=== PATIENT | female | born 1985 | race African-American/Black ===

== ENCOUNTER 2018-04-28 05:50 | Observation (INO) | payer MEDICAID ==
[2018-04-28] MEDS ORDERED: PREN-96 PO (07:54)
== END 2018-04-28 08:00 | disposition home or self-care (01) | DRG 566 ==
LOC: LDRP 05:50
PROVIDERS: ADMIT Obstetrics & Gynecology; ATTEND Obstetrics & Gynecology
DX: O26.853 Spotting complicating pregnancy, third trimester (principal); O26.893 Other specified pregnancy related conditions, third trimester; R51 Headache; R10.30 Lower abdominal pain, unspecified; Z3A.33 33 weeks gestation of pregnancy
CPT/HCPCS: 59025; 76805; 81002; G0378

== ENCOUNTER 2018-06-06 16:20 | Observation (INO) | payer MEDICAID ==
[~2018-06-06 16:20] MED LIST: PREN-96 PO
== END 2018-06-06 17:30 | disposition home or self-care (01) | DRG 566 ==
LOC: LDRP 16:20
PROVIDERS: ADMIT Specialist; ATTEND Specialist
DX: O62.9 Abnormality of forces of labor, unspecified (principal); Z3A.38 38 weeks gestation of pregnancy
CPT/HCPCS: 59025; 81002; G0378

== ENCOUNTER 2018-06-12 07:35 | Observation (INO) | payer MEDICAID | END 2018-06-12 10:10 | disposition home or self-care (01) | DRG 566 | LOC: LDRP 07:35 | PROVIDERS: ADMIT Specialist; ATTEND Specialist | DX: O26.853 Spotting complicating pregnancy, third trimester (principal); O62.9 Abnormality of forces of labor, unspecified; Z3A.39 39 weeks gestation of pregnancy | CPT/HCPCS: 59025; 81002; G0378 ==

== ENCOUNTER 2018-06-12 21:05 | Inpatient (IN) | payer MEDICAID ==
[~2018-06-12] VITALS: Ht 172.7 cm; Wt 88.9 kg
[2018-06-12] MEDS ORDERED: LACT. RINGERS/OXYTOCIN 20UNITS 1,000 ML IV SCH (21:28)
[2018-06-12] MEDS: LACTATED RINGER'S 1,000 ML IV SCH (21:28)
[2018-06-12] MEDS ORDERED: LIDOCAINE 2%HCL (LOCAL ANESTH.) INJ 20ML MDV ID PRN (21:30)
[2018-06-12] MEDS ORDERED: DERMOPLAST 60ML BOTTLE TOP PRN (21:30)
[2018-06-12] MEDS ORDERED: PHISODERM TOP SOLN 240ML BTL TOP PRN (21:30)
[2018-06-12] MEDS ORDERED: METHYLERGONOVINE MALEATE 0.2 MG/ML AMP IM PRN (21:30)
[2018-06-12] MEDS ORDERED: WITCH HAZEL-GLYCERIN PAD TOP PRN (21:30)
[2018-06-12 22:00] LABS: Basophils # (auto) 0 uL; Eosinophils # (auto) 0.1 uL; Neutrophils % (auto) 77.7 % (37.0-80.0)
[2018-06-12 22:01] LABS: Basophils % (auto) 0.4 % (0.0-2.0); Eosinophils % (auto) 0.6 % (0.0-7.0); Hematocrit 29.2 % (36.0-46.0); Hemoglobin 9.4 g/dL (12.2-16.2); Lymphocytes # (auto) 1.3 uL; Lymphocytes % (auto) 12.6 % (10.0-50.0); Mean Corpuscular Hemoglobin 26.3 pg (28.0-32.0); Mean Corpuscular Hgb Conc. 32.3 g/dL (32.0-36.0); Mean Corpuscular Volume 81.4 fL (80.0-100.0); Monocytes # (auto) 0.9 uL; Monocytes % (auto) 8.7 % (0.0-12.0); Neutrophils # (auto) 8.1 uL; Platelet Count (auto) 306 10^3/uL (140-450); Red Blood Cells 3.59 10^6/uL (4.0-5.20); Red Cell Distribution Width 16.1 % (11.8-14.3); White Blood Cell 10.4 10^3/uL (4.4-10.8)
[2018-06-12 22:18] LABS: Albumin 2.3 g/dL (3.4-5.0); BUN/Creatinine Ratio 7.7; Calcium 7.9 mg/dL (8.5-10.1); Potassium 3.8 mmol/L (3.5-5.1)
[2018-06-12 22:21] LABS: Bilirubin, Total 0.4 mg/dL (0.2-1.0); Total Protein 7.7 g/dL (6.4-8.2)
[2018-06-12 22:23] LABS: Urine Bacteria FEW /hpf (None Seen); Urine Blood 2+ /uL (Negative); Urine Mucus FEW (None Seen); Urine Specific Gravity 1.024 (1.001-1.035); Urine WBC 73 /hpf (0 - 5)
[2018-06-12 22:30] LABS: INR 0.9 (0.9-1.15); Partial Thromboplastin Time 30.4 sec (23.78-33.04); Prothrombin Time 9.7 sec (9.27-12.13)
[2018-06-12] MEDS ORDERED: LACTATED RINGER'S 500 ML IV ONE (23:03)
[2018-06-12] MEDS ORDERED: ePHEDrine SULFATE 50 MG/ML AMP IV ONE (23:15)
[2018-06-12] MEDS ORDERED: fentaNYL CITRATE 100 MCG/2 ML VL IV ONE (23:15)
[2018-06-12] MEDS ORDERED: fentaNYL W ROPIVACAINE 150 ML EPI SCH (23:15)
[2018-06-12] MEDS ORDERED: NALOXONE HCL 0.4 MG/ML VIAL IV ONE (23:15)
[2018-06-12] MEDS ORDERED: LIDOCAINE W/ EPINEPHRINE 1 % INJ 30ML ONE (23:16)
[2018-06-12] MEDS ORDERED: LIDOCAINE W/ EPINEPHRINE 1% 20ML VIAL ID ONE (23:30)
[2018-06-13] MEDS ORDERED: SODIUM CHLORIDE 0.9% 500 ML IV PRN (00:33)
[2018-06-13] MEDS ORDERED: NALOXONE HCL 0.4 MG/ML VIAL IV ONE (00:45)
[2018-06-13] MEDS ORDERED: fentaNYL W ROPIVACAINE 150 ML EPI SCH (00:45)
[2018-06-13] MEDS ORDERED: ePHEDrine SULFATE 50 MG/ML AMP IV ONE (00:45)
[2018-06-13] MEDS: LACTATED RINGER'S 1,000 ML IV SCH ×2 (07:40→13:28)
[2018-06-13] MEDS ORDERED: LACT. RINGERS/OXYTOCIN 20UNITS 1,000 ML IV SCH (08:27)
[2018-06-13 09:30] VITALS: BP 136/76
--- NOTE | 2018-06-13 09:33 | NUR ---
Ambulation: Patient OOB with standby assistance by RN. Patient ambulated to bathroom with steady gait. Patient fernandez catheter patent and draining clear yellow urine to gravity per MD order. Pericare teaching provided with returned demonstration by patient. Clean gown provided and bed linen changed. Patient ambulated back to bed with steady gait and no distress noted, ice pack to patient perineum per patient request. Will continue to monitor.
[2018-06-13] MEDS: IBUPROFEN 600 MG TAB PO PRN ×4 (10:36→23:08)
[2018-06-13 10:41] VITALS: BP 135/79
--- NOTE | 2018-06-13 12:05 | NUR ---
NOTIFIED DR. FOURNIER, STATUS UPDATE GIVEN. PTS FUNDUS IS 1 BELOW UMBILICUS, SMALL RUBRA BLEEDING NOTED, FUNDUS FIRM. ORDERS RECEIVED FROM DR. FOURNIER TO D/C PTS CALHOUN CATHETER, D/C PITOCIN INFUSION, AND IV SALINE LOCK. READ BACK AND VERIFIED ORDERS. WILL RUBEN OUT.
--- NOTE | 2018-06-13 12:25 | NUR ---
Fernandez catheter dc'd Order to discontinue fernandez catheter. Fernandez dc'd with clean technique following deflation of balloon, 350ML urine remaining in fernandez bag upon removal. Patient tolerated well with no complaints of pain. Continue care.
--- NOTE | 2018-06-13 13:15 | NUR ---
VOID #1 PT AMBULATED TO BATHROOM WITH STEADY GAIT. NO S/S OF DISTRESS OR SOB NOTED. PT VOIDED 200ML PINK TINGED URINE WITHOUT DIFFICULTY. PT TOLERATED WELL. WILL CONTINUE TO MONITOR.
[2018-06-13 15:27] VITALS: BP 118/71
--- NOTE | 2018-06-13 17:30 | NUR ---
VOID #2 PT AMBULATED TO BATHROOM WITH STEADY GAIT. NO S/S OF DISTRESS OR SOB NOTED. PT VOIDED 450ML PINK TINGED URINE WITHOUT DIFFICULTY. PT TOLERATED WELL. WILL CONTINUE TO MONITOR.
[2018-06-13 19:00] VITALS: BP 113/58
--- NOTE | 2018-06-13 19:00 | NUR ---
PT desires to feed breast milk via bottle. Breast pumping education given, bottles provided.
[2018-06-13 23:06] VITALS: BP 120/73
[2018-06-14 03:25] VITALS: BP 110/67
[2018-06-14] MEDS: IBUPROFEN 600 MG TAB PO PRN (05:37)
[2018-06-14 06:50] VITALS: BP 118/75
[2018-06-14] MEDS ORDERED: TUBERCULIN PPD 5 UNIT/0.1 ML ID ONE (07:15)
--- NOTE | 2018-06-14 09:00 | NUR ---
Discharge: Discharge instructions given as ordered. Pt encouraged to follow up with INTERIOR PAINTER as instructed. All questions and concerns addressed. Patient verbalized understanding. Medication reconciliation completed and copy given to patient. Patient encouraged to prepare to depart unit.
[2018-06-14 10:29] VITALS: BP 133/79
--- NOTE | 2018-06-14 10:35 | NUR ---
Discharge: Patient taken to vehicle via steady gait, pt refused wheelchair with all personal belongings, accompanied by staff and family member. No distress noted at time of departure, no adverse changes in status since initial assessment.
[2018-06-14 15:58] LABS: RPR Non Reactive (Non Reactive)
== END 2018-06-14 10:35 | disposition home or self-care (01) | DRG 560 ==
LOC: LDRP 21:05 → OBSVTOIN 21:05 → LDRP 21:40
PROVIDERS: ADMIT Specialist; ATTEND Specialist
PROC: 10E0XZZ Delivery of Products of Conception, External Approach (ICD-10-PCS; principal; 2018-06-13)
PROC: 0HQ9XZZ Repair Perineum Skin, External Approach (ICD-10-PCS; 2018-06-13)
PROC: 3E0R3BZ Introduction of Anesthetic Agent into Spinal Canal, Percutaneous Approach (ICD-10-PCS; 2018-06-13)
PROC: 00HU33Z Insertion of Infusion Device into Spinal Canal, Percutaneous Approach (ICD-10-PCS; 2018-06-13)
DX: O69.81X0 Labor and delivery complicated by cord around neck, without compression, not applicable or unspecified (principal); O63.1 Prolonged second stage (of labor); O73.0 Retained placenta without hemorrhage; O70.9 Perineal laceration during delivery, unspecified; Z3A.39 39 weeks gestation of pregnancy; Z37.0 Single live birth
CPT/HCPCS: 36415; 51702; 59025; 59409; 62282; 80053; 81001; 85025; 85610; 85730; 86592; 86850; 86900; 86901; 96361; 96365; 96366; A6257; G0378; J2590; J3010

== ENCOUNTER → 2020-11-27 | Outpatient (CLI) | payer MEDICAID ==
[2020-11-27 11:16] LABS: Basophils # (auto) 0.1 10 ^3/uL (0-0.2); Basophils % (auto) 0.7 % (0.0-2.0); Eosinophils # (auto) 0.1 10 ^3/uL (0-0.8); Eosinophils % (auto) 0.9 % (0.0-7.0); Hematocrit 37.6 % (36.0-46.0); Hemoglobin 12.7 g/dL (12.2-16.2); Lymphocytes # (auto) 2.3 10 ^3/uL (0.4-5.4); Lymphocytes % (auto) 17.6 % (10.0-50.0); Mean Corpuscular Hemoglobin 27.1 pg (28.0-32.0); Mean Corpuscular Hgb Conc. 33.8 g/dL (32.0-36.0); Mean Corpuscular Volume 80.2 fL (80.0-100.0); Monocytes # (auto) 1.1 10 ^3/uL (0-1.3); Monocytes % (auto) 8.6 % (0.0-12.0); Neutrophils # (auto) 9.4 10 ^3/uL (1.6-8.6); Neutrophils % (auto) 72.2 % (37.0-80.0); Nucleated Red Blood Cells % 0.1 %; Red Blood Cells 4.69 10^6/uL (4.0-5.20); Red Cell Distribution Width 15.6 % (11.8-14.3)
[2020-11-27 11:30] LABS: Alcohol, Urine < 3.0 mg/dL (0-10); Amphetamine Screen, Urine NEGATIVE (NEGATIVE); Barbiturate Scree,Urine NEGATIVE (NEGATIVE); Benzodiazephine Screen, Urine NEGATIVE (NEGATIVE); Cannabinoid Screen, Urine NEGATIVE (NEGATIVE); Cocaine Screen, Urine NEGATIVE (NEGATIVE); Opiate Scree,Urine NEGATIVE (NEGATIVE); Phencyclidine Screen, Urine NEGATIVE (NEGATIVE)
[2020-11-28 07:06] LABS: RPR Non Reactive (Non Reactive)
== END | disposition home or self-care (01) ==
LOC: LAB 10:23
PROVIDERS: ATTEND Obstetrics & Gynecology
DX: Z34.00 Encounter for supervision of normal first pregnancy, unspecified trimester (principal); Z31.430 Encounter of female for testing for genetic disease carrier status for procreative management; N39.0 Urinary tract infection, site not specified; Z3A.00 Weeks of gestation of pregnancy not specified
CPT/HCPCS: 36415; 80307; 83036; 84112; 84144; 84155; 84165; 84702; 85025; 86592; 86703; 86762; 86850; 86900; 86901; 87086; 87340

== ENCOUNTER → 2021-04-01 | Outpatient (CLI) | payer MEDICAID ==
[2021-04-01 10:27] LABS: Hemoglobin 10.3 g/dL (12.2-16.2); Lymphocytes # (auto) 1.1 10 ^3/uL (0.4-5.4); Monocytes # (auto) 0.7 10 ^3/uL (0-1.3)
[2021-04-01 10:32] LABS: Basophils # (auto) 0.1 10 ^3/uL (0-0.2); Basophils % (auto) 0.6 % (0.0-2.0); Eosinophils # (auto) 0.1 10 ^3/uL (0-0.8); Eosinophils % (auto) 0.7 % (0.0-7.0); Lymphocytes % (auto) 12.3 % (10.0-50.0); Mean Corpuscular Hemoglobin 25.3 pg (28.0-32.0); Mean Corpuscular Hgb Conc. 32.1 g/dL (32.0-36.0); Mean Corpuscular Volume 78.7 fL (80.0-100.0); Neutrophils % (auto) 78.4 % (37.0-80.0); Nucleated Red Blood Cells % 0.1 %; Red Blood Cells 4.06 10^6/uL (4.0-5.20); Red Cell Distribution Width 16.2 % (11.8-14.3)
[2021-04-02 06:06] LABS: RPR Non Reactive (Non Reactive)
== END | disposition home or self-care (01) ==
LOC: LAB 09:34
PROVIDERS: ATTEND Obstetrics & Gynecology
DX: Z34.80 Encounter for supervision of other normal pregnancy, unspecified trimester (principal); Z11.3 Encounter for screening for infections with a predominantly sexual mode of transmission; Z3A.00 Weeks of gestation of pregnancy not specified
CPT/HCPCS: 36415; 84112; 85025; 86592

== ENCOUNTER 2021-04-22 09:15 | Observation (INO) | payer MEDICAID ==
[~2021-04-22] VITALS: Ht 172.7 cm; Wt 85.7 kg
[2021-04-22 09:55] LABS: Basophils # (auto) 0.1 10 ^3/uL (0-0.2); Basophils % (auto) 0.7 % (0.0-2.0); Eosinophils # (auto) 0.1 10 ^3/uL (0-0.8); Eosinophils % (auto) 0.6 % (0.0-7.0); Hemoglobin 10.9 g/dL (12.2-16.2); Lymphocytes # (auto) 1.3 10 ^3/uL (0.4-5.4); Lymphocytes % (auto) 12.8 % (10.0-50.0); Mean Corpuscular Hemoglobin 25.7 pg (28.0-32.0); Mean Corpuscular Volume 77.9 fL (80.0-100.0); Monocytes # (auto) 0.8 10 ^3/uL (0-1.3); Monocytes % (auto) 8.1 % (0.0-12.0); Neutrophils # (auto) 7.6 10 ^3/uL (1.6-8.6); Neutrophils % (auto) 77.8 % (37.0-80.0); Red Blood Cells 4.23 10^6/uL (4.0-5.20); Red Cell Distribution Width 16.5 % (11.8-14.3); White Blood Cell 9.8 10^3/uL (4.4-10.8)
[2021-04-22] MEDS ORDERED: FERR-7 PO (09:59)
[2021-04-22 10:04] LABS: INR 0.97 (0.9-1.15); Partial Thromboplastin Time 29.3 sec (23.6-33.0)
[2021-04-22 10:06] LABS: Albumin 2.6 g/dL (3.4-5.0); Calcium 8.5 mg/dL (8.5-10.1); Potassium 4.2 mmol/L (3.5-5.1)
[2021-04-22 10:07] LABS: Urine Bacteria FEW /hpf (None Seen); Urine Blood Negative /uL (Negative); Urine Mucus FEW (None Seen); Urine Specific Gravity 1.027 (1.001-1.035); Urine WBC 3 /hpf (0 - 5)
[2021-04-22 10:10] LABS: BUN/Creatinine Ratio 9.6; Bilirubin, Total 0.3 mg/dL (0.2-1.0); Total Protein 8.3 g/dL (6.4-8.2); Uric Acid 5.4 mg/dL (2.6-6.0)
[2021-04-22 10:20] LABS: Amphetamine Screen, Urine NEGATIVE (NEGATIVE); Barbiturate Scree,Urine NEGATIVE (NEGATIVE); Benzodiazephine Screen, Urine NEGATIVE (NEGATIVE); Cannabinoid Screen, Urine NEGATIVE (NEGATIVE); Cocaine Screen, Urine NEGATIVE (NEGATIVE); Opiate Scree,Urine NEGATIVE (NEGATIVE); Phencyclidine Screen, Urine NEGATIVE (NEGATIVE)
[2021-04-22 12:03] LABS: Protein, Urine 36.3 mg/dL (0.0-11.9)
== END 2021-04-22 12:46 | disposition home or self-care (01) ==
LOC: LDRP 09:15
PROVIDERS: ADMIT Obstetrics & Gynecology; ATTEND Obstetrics & Gynecology
DX: O13.3 Gestational [pregnancy-induced] hypertension without significant proteinuria, third trimester (principal); Z3A.38 38 weeks gestation of pregnancy; Z79.899 Other long term (current) drug therapy; Z98.890 Other specified postprocedural states
CPT/HCPCS: 36415; 59025; 80053; 80307; 81001; 81002; 82570; 84156; 84550; 85025; 85610; 85730; G0378; G0379

== ENCOUNTER 2021-04-22 20:58 | Inpatient (IN) | payer MEDICAID ==
[~2021-04-22] VITALS: Ht 172.7 cm; Wt 85.7 kg
[~2021-04-22 20:58] MED LIST changes: +FERR-7 PO
[2021-04-22] MEDS ORDERED: LACT. RINGERS/OXYTOCIN 20UNITS 500 ML IV ONE ×2 (21:15→21:45)
[2021-04-22] MEDS ORDERED: WITCH HAZEL-GLYCERIN PAD TOP PRN (21:15)
[2021-04-22] MEDS ORDERED: LIDOCAINE 2%HCL (LOCAL ANESTH.) INJ 20ML MDV IJ PRN (21:15)
[2021-04-22] MEDS ORDERED: DERMOPLAST 60ML BOTTLE TOP PRN (21:15)
[2021-04-22] MEDS ORDERED: TERBUTALINE SULFATE 1 MG/ML 1ML VIAL SC PRN (21:15)
[2021-04-22] MEDS ORDERED: BUTORPHANOL TARTRATE 2 MG/1 ML VIAL IV PRN ×2 (21:15)
[2021-04-22] MEDS ORDERED: PHISODERM TOP SOLN 240ML BTL TOP PRN (21:15)
[2021-04-22] MEDS ORDERED: PROMETHAZINE HCL 25 MG/ML 1ML IV PRN (21:15)
[2021-04-22] MEDS: LACTATED RINGER'S 1,000 ML IV SCH (22:16)
[2021-04-23] MEDS: miSOPROStol 50 MCG per PRE-CUT 1/2 TAB PO PRN ×3 (04:04→08:21)
[2021-04-23] MEDS: hydrALAZINE HCL 20 MG/ML VL IV PRN ×2 (04:22→04:46)
[2021-04-23] MEDS ORDERED: MAGNESIUM SULFATE 40MG/ML 1,000 ML IV SCH ×2 (04:45→13:30)
[2021-04-23] MEDS ORDERED: LORazepam 2MG/ML-1ML VIAL IV PRN (04:45)
[2021-04-23] MEDS ORDERED: MAGNESIUM SULFATE 100 ML IV ONE ×2 (04:45→05:02)
[2021-04-23] MEDS: LACTATED RINGER'S 1,000 ML IV SCH ×4 (05:15→20:55)
[2021-04-23] MEDS ORDERED: LIDOCAINE HCL 2 %PF INJ 10ML AMP IJ ONE (13:00)
[2021-04-23] MEDS ORDERED: fentaNYL CITRATE 100 MCG/2 ML VL IV ONE ×2 (13:00)
[2021-04-23] MEDS ORDERED: ePHEDrine SULFATE 50 MG/ML AMP IV ONE ×2 (13:00)
[2021-04-23] MEDS ORDERED: ROPIVACAINE HCL 200 ML EPI SCH ×2 (13:00)
[2021-04-23] MEDS ORDERED: LACTATED RINGER'S 1,000 ML IV ONE ×2 (13:00)
[2021-04-23] MEDS ORDERED: NALOXONE HCL 0.4 MG/ML VIAL IV ONE ×2 (13:00)
[2021-04-23] MEDS: LACT. RINGERS/OXYTOCIN 20UNITS 1,000 ML IV SCH (15:00)
[2021-04-23] MEDS ORDERED: ACETAMINOPHEN 500 MG TAB PO ONE (17:00)
[2021-04-23] MEDS: LABETALOL HCL 200 MG TAB PO SCH (20:58)
[2021-04-24] VITALS (27 sets, daily range): BP systolic 92–145; BP diastolic 50–80
[2021-04-24] MEDS: LACTATED RINGER'S 1,000 ML IV SCH ×2 (02:39→15:00)
[2021-04-24] MEDS: LACT. RINGERS/OXYTOCIN 20UNITS 1,000 ML IV SCH (02:44)
[2021-04-24 07:06] LABS: RPR Non Reactive (Non Reactive)
[2021-04-24] MEDS ORDERED: MAGNESIUM SULFATE 40MG/ML 1,000 ML IV SCH ×2 (08:30→16:45)
[2021-04-24] MEDS ORDERED: MAGNESIUM SULFATE 100 ML IV ONE (08:30)
[2021-04-24] MEDS ORDERED: TRANEXAMIC ACID 1,000 MG in SODIUM CHL 0.9% 100 ML IV ONE (08:45)
[2021-04-24] MEDS ORDERED: miSOPROStol 100 mcg TAB PR PRN (08:45)
[2021-04-24] MEDS ORDERED: CARBOPROST TROMETHAMINE 250 MCG/1ML VIAL IM PRN (08:45)
[2021-04-24] MEDS ORDERED: ONDANSETRON HCL 4 MG/2 ML VIAL IV PRN (08:45)
[2021-04-24] MEDS ORDERED: miSOPROStol 100 mcg TAB SL PRN (08:45)
[2021-04-24] MEDS: DIPHENOXYLATE W/ATROPINE 2.5 MG TAB PO SCH ×2 (10:00→22:00)
[2021-04-24] MEDS: LABETALOL HCL 200 MG TAB PO SCH ×2 (10:25→22:00)
[2021-04-24] MEDS ORDERED: ACETAMINOPHEN 325 MG TAB PO PRN (11:30)
[2021-04-24] MEDS ORDERED: IBUPROFEN 600 MG TAB PO PRN (11:30)
[2021-04-24] MEDS ORDERED: ONDANSETRON ODT 4 MG TAB PO PRN (11:30)
[2021-04-24] MEDS: IBUPROFEN 800 MG TAB PO SCH ×2 (11:50→18:45)
[2021-04-24] MEDS ORDERED: DOCUSATE SOD 100 MG CAP PO SCH (22:00)
[2021-04-25] MEDS: IBUPROFEN 800 MG TAB PO SCH (02:56)
[2021-04-25 03:00] VITALS: BP 126/87
[2021-04-25 07:20] VITALS: BP 141/89
[2021-04-25] MEDS ORDERED: LABETALOL HCL 200 MG TAB PO SCH (10:00)
[2021-04-25 10:45] VITALS: BP 121/78
[2021-04-25] MEDS ORDERED: LABE200T7 PO (10:47)
== END 2021-04-25 12:25 | disposition home or self-care (01) | DRG 560 ==
LOC: LDRP 20:58
PROVIDERS: ADMIT Obstetrics & Gynecology; ATTEND Obstetrics & Gynecology
PROC: 0U7C7ZZ Dilation of Cervix, Via Natural or Artificial Opening (ICD-10-PCS; 2021-04-23)
PROC: 10E0XZZ Delivery of Products of Conception, External Approach (ICD-10-PCS; principal; 2021-04-24)
PROC: 0KQM0ZZ Repair Perineum Muscle, Open Approach (ICD-10-PCS; 2021-04-24)
PROC: 3E0R3BZ Introduction of Anesthetic Agent into Spinal Canal, Percutaneous Approach (ICD-10-PCS; 2021-04-24)
PROC: 00HU33Z Insertion of Infusion Device into Spinal Canal, Percutaneous Approach (ICD-10-PCS; 2021-04-24)
DX: O13.4 Gestational [pregnancy-induced] hypertension without significant proteinuria, complicating childbirth (principal); Z37.0 Single live birth; O14.04 Mild to moderate pre-eclampsia, complicating childbirth; Z20.822 Contact with and (suspected) exposure to COVID-19; O69.81X0 Labor and delivery complicated by cord around neck, without compression, not applicable or unspecified; O70.1 Second degree perineal laceration during delivery; Z3A.38 38 weeks gestation of pregnancy
CPT/HCPCS: 36415; 59025; 59200; 59409; 62282; 81002; 83735; 86592; 86850; 86900; 86901; 87426; 94760; 96360; 96361; 96365; 96366; G0378; J2590

== ENCOUNTER 2023-08-16 02:55 | Emergency (ER) | payer MEDICAID ==
[~2023-08-16] VITALS: Ht 172.7 cm; Wt 77.2 kg
[~2023-08-16 02:55] MED LIST changes: +LABE200T33 PO
[2023-08-16 04:19] LABS: Urine Bacteria None Seen /hpf (None Seen)
[2023-08-16] MEDS: KETOROLAC TROMETH 30 MG/ML 1ML VIAL IM ONE (04:37)
[2023-08-16 04:52] LABS: Basophils # (auto) 0.1 10 ^3/uL (0-0.2); Eosinophils # (auto) 0.1 10 ^3/uL (0-0.8); Monocytes # (auto) 0.6 10 ^3/uL (0-1.3)
[2023-08-16 04:52] LABS: Urine Blood 2+ /uL (Negative); Urine Budding Yeast OCCASIONAL /hpf (None Seen); Urine Clarity Clear (Clear); Urine Color Yellow (Yellow); Urine Mucus FEW (None Seen); Urine Protein, UAD 2+ (Negative); Urine Specific Gravity 1.029 (1.001-1.035); Urine Urobilinogen Normal (Negative); Urine WBC 4 /hpf (0 - 5)
[2023-08-16 04:54] LABS: Basophils % (auto) 1.3 % (0.0-2.0); Eosinophils % (auto) 1.3 % (0.0-7.0); Hematocrit 34.5 % (36.0-46.0); Hemoglobin 11.2 g/dL (12.2-16.2); Lymphocytes # (auto) 1.8 10 ^3/uL (0.4-5.4); Lymphocytes % (auto) 23.8 % (10.0-50.0); Mean Corpuscular Hemoglobin 24.3 pg (28.0-32.0); Mean Corpuscular Hgb Conc. 32.4 g/dL (32.0-36.0); Mean Corpuscular Volume 75.1 fL (80.0-100.0); Monocytes % (auto) 7.2 % (0.0-12.0); Neutrophils # (auto) 5.1 10 ^3/uL (1.6-8.6); Neutrophils % (auto) 66.4 % (37.0-80.0); Red Cell Distribution Width 18.3 % (11.8-14.3); White Blood Cell 7.8 10^3/uL (4.4-10.8)
[2023-08-16 05:00] LABS: Alanine Aminotransferase 19 U/L (7-40); Albumin 4.2 g/dL (3.2-4.8); Alkaline Phosphatase 89 U/L (46-116); Anion Gap 7 (5-15); Aspartate Aminotransferase 15 U/L (13-40); Bilirubin, Total 0.4 mg/dL (0.2-1.0); Blood Urea Nitrogen 6 mg/dL (9-23); Calcium 9.3 mg/dL (8.7-10.4); Carbon Dioxide 23 mmol/L (20-30); Chloride 104 mmol/L (98-107); Glucose 98 mg/dL (74-106); Potassium 3.8 mmol/L (3.5-5.1); Sodium 134 mmol/L (136-145); Total Protein 9.2 g/dL (5.7-8.2)
[2023-08-16 05:30] VITALS: BP 128/96; PULSE 73; RESP 18; TEMP 98; O2SAT 98
== END 2023-08-16 05:35 | disposition home or self-care (01) ==
LOC: ER 02:55
DX: Q63.2 Ectopic kidney (principal); Z32.02 Encounter for pregnancy test, result negative
CPT/HCPCS: 36415; 74176; 80053; 81001; 81025; 85025; 96372; 99285; J1885

== ENCOUNTER 2023-08-18 02:05 | Emergency (ER) | payer MEDICAID ==
[~2023-08-18] VITALS: Ht 172.7 cm; Wt 77.0 kg
[2023-08-18 02:51] LABS: Urine Bacteria None Seen /hpf (None Seen)
[2023-08-18] MEDS: KETOROLAC TROMETH 60MG/2ML VIAL IM ONE (03:15)
[2023-08-18 03:20] LABS: Urine Blood Negative /uL (Negative); Urine Budding Yeast OCCASIONAL /hpf (None Seen); Urine Clarity Clear (Clear); Urine Color Light-Yellow (Yellow); Urine Mucus FEW (None Seen); Urine Protein, UAD 1+ (Negative); Urine Specific Gravity 1.026 (1.001-1.035); Urine Urobilinogen Normal (Negative); Urine WBC 3 /hpf (0 - 5); Urine pH 6.5 (5.0-9.0)
[2023-08-18] MEDS ORDERED: HYDR-4902 PO (03:38)
[2023-08-18 05:06] VITALS: BP 144/97; TEMP 98.2
[2023-08-18 05:11] VITALS: PULSE 73; RESP 16; O2SAT 98
== END 2023-08-18 05:19 | disposition home or self-care (01) ==
LOC: ER 02:05
DX: R10.31 Right lower quadrant pain (principal); Q63.2 Ectopic kidney; I10 Essential (primary) hypertension
CPT/HCPCS: 81001; 81025; 96372; 99283; J1885

== ENCOUNTER 2024-01-30 11:00 | Emergency (ER) | payer MEDICAID ==
[~2024-01-30] VITALS: Ht 170.2 cm; Wt 69.3 kg
[~2024-01-30 11:00] MED LIST changes: +HYDR-4902 PO
[2024-01-30 11:36] VITALS: BP 158/98; PULSE 92; RESP 16; TEMP 98.7; O2SAT 98
[2024-01-30] MEDS: TETRACAINE HCL 0.5% OPTH(EYE) SOLN 4ML EACHEYE ONE (12:22)
[2024-01-30] MEDS: FLUORESCEIN SOD OPTH TEST STRIP EACHEYE ONE (12:22)
[2024-01-30] MEDS ORDERED: ERY05OO OP (13:00)
== END 2024-01-30 13:07 | disposition home or self-care (01) ==
LOC: ER 11:00
DX: H15.092 Other scleritis, left eye (principal); I10 Essential (primary) hypertension; R51.9 Headache, unspecified

== ENCOUNTER 2024-06-05 05:36 | Emergency (ER) | payer MEDICAID ==
[~2024-06-05] VITALS: Ht 172.7 cm; Wt 67.7 kg
[~2024-06-05 05:36] MED LIST changes: +ERY05OO OP
[2024-06-05 05:41] VITALS: BP 154/102
[2024-06-05 06:36] VITALS: PULSE 99; RESP 18; O2SAT 100
[2024-06-05] MEDS ORDERED: IBUP-1455 PO (06:42)
--- NOTE | 2024-06-05 06:43 | ED.PDOC ---
Musculoskeletal HPI Comments Pleasant 39 year old female presents for atraumatic left knee pain/swelling upon waking. No injury but does state she has been bearing more weight on the left leg d/t right foot pain Has not tried tx Denies knee issues Denies erythema, warmth, TTP Able to ambulate w/ no assistive devices Chief Complaint: Lower Extremity Time Seen by MD: 06:24 Primary Care Provider: MIYA Reviewed Notes: Nurses Notes, Medications, Allergies Allergies: Coded Allergies: No Known Drug Allergy (Verified Allergy, Unknown, 06/12/18) Home Meds Active Scripts Ibuprofen Micronized (Ibuprofen) 800 Mg Tab, 800 MG PO TIDPRN PRN for 10 Days, #30 TAB 0 Refills Prov:JESS MONTANO EDUCATION PROFESSIONAL 06/05/24 Erythromycin (Erythromycin) 5 Mg/Gm Oin, 1 APPLIC OP TID for 10 Days, #5 GRAMS 0 Refills Prov:JESS MONTANO EDUCATION PROFESSIONAL 01/30/24 Hydrocodone-Acetaminophen (Hydrocodone Bitartrate/AC 5-325 mg) 1 Tab Tab, 1 TAB PO Q6HPRN PRN, #10 TAB Prov:NEELA WALTERS PAC 08/18/23 Reported Medications Labetalol Hcl (Labetalol Hcl) 200 Mg Tab, 200 MG PO BID for 30 Days, MG 04/25/21 Ferrous Sulfate (Iron) 325 Mg Tab, 325 MG PO DAILY, TAB 04/22/21 Vit W/ Ferrous Fumara ( One Daily) Daily Tab, 1 TAB PO DAILY, #90 TAB 3 Refills 04/28/18 Information Source: Relative (Father) Mode of Arrival: Ambulatory Past Medical History PAST MEDICAL HISTORY: HTN Surgical History: Denies all surgeries CIRCUIT BREAKER MECHANIC History: No Pertinent CIRCUIT BREAKER MECHANIC History Family History Family History: Reviewed,noncontributory to illness, Unknown Social History Smoker: Non-Smoker Alcohol: Denies ETOH Use Drugs: Denies Drug Use Lives In: Home All Other Systems: Reviewed and Negative (Per HPI) Physical Exam General Appearance: No Apparent Distress, Normal HEENT: Normal ENT Inspection, Pharynx Normal, TMs Normal Neck: Full Range of Motion, Non-Tender, Normal, Normal Inspection Respiratory: Chest Non-Tender, Lungs Clear, No Accessory Muscle Use, No Resp iratory Distress, Normal Breath Sounds Cardiovascular: No Edema, No JVD, No Murmur, No Gallop, Normal Peripheral Pulses, Regular Rate/Rhythm Breast Exam: Deferred Gastrointestinal: No Organomegaly, Non Tender, No Pulsatile Mass, Normal Bowel Sounds, Soft Genitalia: Deferred Pelvic: Deferred Rectal: Deferred Extremities: No calf tenderness, Normal capillary refill, Normal inspection, Normal range of motion, Non-tender, No pedal edema Musculoskeletal : Location: Left Extremity Location: Knee (No gross abnormality on inspection. No visible swelling. No TTP. Full passive/active ROM. anterior/posterior drawer test negative. Valgus/vargus -) Apperance: Normal Neurologic: Alert, No Motor Deficits, Normal Affect, Normal Mood, No Sensory Deficits Cerebellar Function: Normal Reflexes: Normal Skin: Dry, Normal Color, Warm Lymphatic: No Adenopathy Was a procedure done? Was a procedure done?: No Differential Diagnosis EXT Differential Diagnosis: Sprain, Bursitis, Other X-Ray, Labs, Meds, VS Vital Signs Date Time Temp Pulse Resp B/P (MAP) Pulse Ox O2 Delivery O2 Flow Rate FiO2 06/05/24 06:36 99 18 100 Room Air 06/05/24 05:41 98.1 99 18 154/102 (119) 100 X-Ray, Labs, Meds, VS Comment Mild knee effusion No indication for Arthrocentesis at this time Agreed to conservative tx at this time JANET wrap Discussed RICE Take IBU 800 mg TID prn Patient is stable for discharge at this time. External notes reviewed. Test results and diagnostic imaging interpreted. All diagnostic findings, discharge care, education and instructions provided Follow-up with PCP in 2 to 3 days Patient verbalized understanding and agreed to treatment plan Vital signs stable, afebrile, no acute distress noted Patient ambulatory with strong steady gait Advised to return precautions for any new or worsening symptoms, return to ER immediately for re-evaluation Patient is aware that the purpose of this visit was for an acute medical emergency requiring emergent stabilization. Chronic conditions, including malignancies have not been ruled out. Patient is instructed to follow up with P CP as directed and discharge instructions for continued care and workup. If unable to arrange follow-up, patient is to return to the emergency department for reassessment. Patient (parent or legal guardian if applicable) was given verbal and written discharge instructions and acknowledges understanding. Time of 1ST Reevaluation: 06:40 Reevaluation 1ST: Improved Patient Education/Counseling: Diagnosis, Treatment Family Education/Counseling: Diagnosis, Treatment Departure 1 Departure Time of Disposition: 06:40 Impression: Primary Impression: Knee effusion, left Disposition: HOME / SELF CARE / HOMELESS Condition: Stable e-Prescriptions Ibuprofen Micronized (Ibuprofen) 800 Mg Tab 800 MG PO TIDPRN PRN for 10 Days, #30 TAB 0 Refills Prov: JESS MONTANO NP 06/05/24 Discharged With: Self Critical Care Note Critical Care Time?: No Stability Stability form required: No Heart Score Heart Score: Heart Score Response (Comments) Value History N/A 0 EKG N/A 0 Age N/A 0 Risk Factors N/A 0 Troponin N/A 0 Total 0 JESS MONTANO NP Jun 05, 2024 06:42
== END 2024-06-05 06:48 | disposition home or self-care (01) ==
LOC: ER 05:36
DX: M25.462 Effusion, left knee (principal); I10 Essential (primary) hypertension